=== PATIENT | female | born 1945 | race Hispanic/Latino ===

== ENCOUNTER 2021-01-27 23:51 | Observation (INO) | payer MEDICARE ==
[~2021-01-27] VITALS: Ht 152.4 cm; Wt 90.7 kg
[~2021-01-27 23:51] MED LIST: ATORVASTATIN; GABAPENTIN; HUMALOG; JANUMET; LANTUS; LEVOTHYROXINE75 MCG PO; LISINOPRIL; OMEPRAZOLE20 M1 PO; TRAMADOL-ACETAMI1 EA PO
[2021-01-28] MEDS ORDERED: ALBUTEROL/IPRATROPIUM 3 ML NEB NEB ONE (00:15)
[2021-01-28] MEDS ORDERED: METHYLPREDNISOLONE SOD SUCC 125 MG/2ML VIAL IV ONE (00:15)
[2021-01-28] MEDS ORDERED: DEXTROSE 50% SYRINGE 50 ML IV ONE (00:45)
[2021-01-28 00:54] LABS: BASOPHILS # (AUTO) 0.1 (0.0-0.1); BASOPHILS % 0.5 % (0.0-1.0); EOSINOPHILS % 0.3 % (0.0-6.0); HEMATOCRIT 27.6 % (34.2-44.1); HEMOGLOBIN 8.9 g/dL (12.0-16.0); LYMPHOCYTES # (AUTO) 2.4 (1.0-3.2); LYMPHOCYTES % 18.9 % (18.0-39.1); MEAN CORPUSCULAR HEMOGLOBIN 29.1 pg (28-32); MEAN CORPUSCULAR HGB CONC 32.2 g/dL (31-35); MEAN CORPUSCULAR VOLUME 90.2 fL (81-99); MONOCYTES # (AUTO) 2.5 (0.2-0.8); MONOCYTES % 20.1 % (4.4-11.3); NEUTROPHILS # (AUTO) 7.4 (2.1-6.9); NEUTROPHILS % 59.3 % (38.7-80.0); PLATELET COUNT 364 x10e3/uL (140-360); RED BLOOD COUNT 3.06 x10e6/uL (3.6-5.1); RED CELL DISTRIBUTION WIDTH 16.2 % (11.7-14.4)
[2021-01-28 01:16] LABS: ALBUMIN 2.9 g/dL (3.5-5.0); ALBUMIN/GLOBULIN RATIO 0.6 (0.8-2.0); ANION GAP 17.6 mmol/L (8-16); CALCIUM 8.5 mg/dL (8.4-10.2); CREATININE, SERUM 1.19 mg/dL (0.57-1.11); POTASSIUM 3.6 mmol/L (3.5-5.1)
[2021-01-28 01:24] LABS: CREATINE KINASE MB 3.6 ng/mL (0-5.0)
[2021-01-28] MEDS ORDERED: DEXTROSE 50% SYRINGE 50 ML IV STA (04:14)
[2021-01-28 05:06] LABS: CLARITY,URINE CLEAR (CLEAR); COLOR,URINE YELLOW (YELLOW); KETONES,URINE NEGATIVE (NEGATIVE); LEUKOCYTE ESTERASE ,URINE NEGATIVE (NEGATIVE); NITRITE,URINE NEGATIVE (NEGATIVE); PROTEIN,URINE DIPSTICK 2+ (NEGATIVE); URINE UROBILINOGEN 0.2 mg/dL (0.2 - 1)
[2021-01-28 05:15] LABS: BACTERIA,URINE FEW /HPF; EPITHELIAL CELLS,URINE FEW /LPF; RENAL EPITHELIAL CELLS,URINE FEW; TRANSITIONAL EPI CELLS,URINE FEW; WBC,URINE (MAN) 0-5 /HPF (0-5)
[2021-01-28] MEDS ORDERED: ACETAMINOPHEN 325 MG TAB PO PRN (09:45)
[2021-01-28] MEDS ORDERED: ZOLPIDEM TARTRATE 5 MG TAB PO PRN (09:45)
[2021-01-28] MEDS ORDERED: DOCUSATE SODIUM 100 MG CAP PO PRN ×2 (09:45)
[2021-01-28] MEDS ORDERED: BENZONATATE 100 MG CAP PO PRN (09:45)
[2021-01-28] MEDS ORDERED: LISINOPRIL40 MG PO (11:28)
[2021-01-28] MEDS ORDERED: AMLODIPINE BESYL5 MG PO (11:30)
[2021-01-28] MEDS ORDERED: SOLIFENACIN SUCC5 MG PO (11:30)
[2021-01-28] MEDS ORDERED: LEVOTHYROXINE125 MCG PO (11:30)
[2021-01-28] MEDS ORDERED: JANUMET XR 50-1 EAC1 PO (11:32)
[2021-01-28] MEDS ORDERED: HYDRALAZINE HCL10 MG (11:38)
[2021-01-28] MEDS ORDERED: METOPROLOL TART50 MG PO (11:38)
[2021-01-28] MEDS ORDERED: NIFEDIAC CC60 MG PO (11:38)
[2021-01-28 12:02] VITALS: BP 147/77
[2021-01-28 12:45] VITALS: BP 147/77
[2021-01-28 12:47] VITALS: BP 147/77
[2021-01-28 15:09] VITALS: BP 163/79
[2021-01-28] MEDS: GABAPENTIN 300 MG CAP PO SCH ×2 (15:58→20:37)
[2021-01-28 16:22] LABS: ANION GAP 17.5 mmol/L (8-16); CALCIUM 8.6 mg/dL (8.4-10.2); CREATININE, SERUM 1.05 mg/dL (0.57-1.11); POTASSIUM 4.5 mmol/L (3.5-5.1)
[2021-01-28] MEDS: FUROSEMIDE INJ 10 MG/ML 2 ML VIAL IV SCH (17:22)
[2021-01-28 19:41] VITALS: BP 154/77
[2021-01-28] MEDS: METOPROLOL TARTRATE 50 MG TAB PO SCH (20:37)
[2021-01-28] MEDS ORDERED: ATORVASTATIN 40 MG TAB PO SCH (21:00)
[2021-01-28 21:43] VITALS: BP 154/77
[2021-01-29 00:05] VITALS: BP 106/76
[2021-01-29 04:50] VITALS: BP 155/67
[2021-01-29] MEDS ORDERED: LEVOTHYROXINE SODIUM 75 MCG TAB PO SCH (06:00)
[2021-01-29 07:16] LABS: BASOPHILS % 0.5 % (0.0-1.0); EOSINOPHILS % 0.5 % (0.0-6.0); HEMATOCRIT 25.8 % (34.2-44.1); HEMOGLOBIN 8.1 g/dL (12.0-16.0); LYMPHOCYTES % 35.3 % (18.0-39.1); MEAN CORPUSCULAR HEMOGLOBIN 28.3 pg (28-32); MEAN CORPUSCULAR HGB CONC 31.4 g/dL (31-35); MEAN CORPUSCULAR VOLUME 90.2 fL (81-99); MONOCYTES # (AUTO) 1.7 (0.2-0.8); NEUTROPHILS # (AUTO) 3.6 (2.1-6.9); PLATELET COUNT 314 x10e3/uL (140-360); RED BLOOD COUNT 2.86 x10e6/uL (3.6-5.1); RED CELL DISTRIBUTION WIDTH 15.9 % (11.7-14.4)
[2021-01-29 07:39] LABS: ALANINE AMINOTRANSFERASE 28 IU/L (0-55); ALBUMIN 2.6 g/dL (3.5-5.0); ALBUMIN/GLOBULIN RATIO 0.6 (0.8-2.0); ALKALINE PHOSPHATASE 253 IU/L (40-150); ANION GAP 14.6 mmol/L (8-16); BLOOD UREA NITROGEN 21 mg/dL (7-26); BUN/CREATININE RATIO 25 (6-25); CALCIUM 8.8 mg/dL (8.4-10.2); CARBON DIOXIDE 28 mmol/L (22-29); CHLORIDE 106 mmol/L (98-107); CREATININE, SERUM 0.84 mg/dL (0.57-1.11); EST GLOMERULAR FILTRATION RATE > 60 ML/MIN (60-); GLUCOSE 142 mg/dL (74-118); POTASSIUM 3.6 mmol/L (3.5-5.1); SODIUM 145 mmol/L (136-145)
[2021-01-29 07:57] LABS: CHOL/HDL RATIO 2.8 (3.0-3.6)
[2021-01-29 08:00] VITALS: BP 153/62
[2021-01-29 08:15] VITALS: BP 153/62
[2021-01-29] MEDS: FUROSEMIDE INJ 10 MG/ML 2 ML VIAL IV SCH (09:39)
[2021-01-29] MEDS: METOPROLOL TARTRATE 50 MG TAB PO SCH (09:40)
[2021-01-29] MEDS: GABAPENTIN 300 MG CAP PO SCH (09:40)
[2021-01-29] MEDS ORDERED: LASIX10 MG/ML PO (10:21)
[2021-01-29 11:52] VITALS: BP 158/64
== END 2021-01-29 12:58 | disposition home or self-care (01) ==
LOC: ER 01-28 01:00 → INTOOBSV 01-28 02:03 → ERHOLD 01-28 02:03 → IMCU 01-28 12:07 → MED/SURG3 01-28 17:06
PROVIDERS: ADMIT Internal Medicine; ATTEND Internal Medicine
DX: I11.0 Hypertensive heart disease with heart failure (principal); I50.33 Acute on chronic diastolic (congestive) heart failure; E11.649 Type 2 diabetes mellitus with hypoglycemia without coma; Z79.899 Other long term (current) drug therapy; Z20.822 Contact with and (suspected) exposure to COVID-19; E66.9 Obesity, unspecified; Z68.39 Body mass index [BMI] 39.0-39.9, adult
CPT/HCPCS: 36415 ×2; 71045; 80048; 80053 ×2; 80061; 81001; 82550; 82553; 82948 ×2; 83036; 83880; 84484; 85025 ×2; 93005; 93306; 94640; 97161; 99284; G0378 ×2; J1940 ×2; J2930; J7799; U0002